=== PATIENT | female | born 1950 | race Caucasian/White ===

== ENCOUNTER 2019-07-08 15:01 | Emergency (ER) | payer OTHER ==
[~2019-07-08] VITALS: Ht 172.7 cm; Wt 79.4 kg
[~2019-07-08 15:01] MED LIST: METO50TA7 PO
[2019-07-08 15:30] VITALS: BP_SYST 136
--- NOTE | 2019-07-08 16:00 | NUR ---
Patient to ER bed 3 to gown for evaluation. Side rails up.
--- NOTE | 2019-07-08 16:20 | NUR ---
ER at bedside examining patient.
[2019-07-08] MEDS ORDERED: NACL 0.9% 1,000 ML IV ONE (16:30)
[2019-07-08] MEDS ORDERED: cefTRIAXone 1 GM in D5W 50 ML IV ONE (16:30)
[2019-07-08 17:20] LABS: BASOPHILS # (AUTO) 0.1 K/uL (0.0-0.2); BASOPHILS % (AUTO) 0.8 % (0.0-2.0); EOSINOPHILS # (AUTO) 0.1 K/uL (0.0-0.4); EOSINOPHILS % (AUTO) 1.2 % (0.0-4.0); HEMATOCRIT 42.9 % (36-48); HEMOGLOBIN 14.5 g/dL (12.0-16.0); LYMPHOCYTES # (AUTO) 1.4 K/uL (1.0-5.5); LYMPHOCYTES % (AUTO) 16.3 % (20.5-51.5); MEAN CORPUSCULAR HEMOGLOBIN 29 pg (27-31); MEAN CORPUSCULAR HGB CONC 34 % (32-36); MEAN CORPUSCULAR VOLUME 85 fL (79.0-98.0); MONOCYTES # (AUTO) 0.8 K/uL (0.0-1.0); NEUTROPHILS # (AUTO) 6.3 K/uL (1.8-7.7); NEUTROPHILS % (AUTO) 72.7 % (40.0-70.0); PLATELET COUNT (AUTO) 236 K/uL (130-430); RED BLOOD CELL COUNT(AUTO) 5.06 MIL/uL (4.2-6.2); RED CELL DISTRIBUTION WIDTH 14.7 % (9.0-15.0); WHITE BLOOD COUNT (AUTO) 8.7 K/uL (4.8-10.8)
--- NOTE | 2019-07-08 17:20 | NUR ---
# 22 gauge angiocath placed to left hand. Use of asceptic technique. Opsite placed over site. Blood return noted. Blood for lab drawn from site. Flushed with 10 cc of normal saline. No evidence of infiltration noted. Patient tolerated well.
[2019-07-08 17:27] LABS: CREATININE 0.84 mg/dL (0.55-1.30); POTASSIUM 4.5 mmol/L (3.5-5.1)
[2019-07-08 17:28] LABS: PROTHROMBIN TIME 9.7 SECS (9.5-12.5)
--- NOTE | 2019-07-08 17:30 | NUR ---
pt is currently running NS 1L and Rocephin per MD order.
[2019-07-08] MEDS: KETOROLAC TROMETHAMINE 30 MG VIAL IVP ONE ×2 (17:44→17:45)
[2019-07-08 17:46] LABS: ALBUMIN 3.3 g/dL (3.4-4.8); TOTAL BILIRUBIN 0.6 mg/dL (0.0-1.0)
[2019-07-08 18:27] LABS: BILIRUBIN,URINE NEGATIVE (NEGATIVE); BLOOD, URINE NEGATIVE (NEGATIVE); CLARITY/URINE CLEAR (CLEAR); COLOR,URINE YELLOW (YELLOW); GLUCOSE,URINE NEGATIVE (NEGATIVE); KETONES,URINE 1+ (NEGATIVE); LEUKOCYTE ESTERASE ,URINE 2+ (NEGATIVE); NITRITE, URINE NEGATIVE (NEGATIVE); PH,URINE 5.5 (5.0-8.0); PROTEIN URINE NEGATIVE (NEGATIVE); UROBILINOGEN,URINE 0.2 (0.2-1.0)
[2019-07-08 18:39] LABS: BACTERIA,URINE FEW /HPF (None Seen); MUCUS,URINE None Seen /LPF (None Seen); RBC,URINE NONE SEEN /HPF (0-3)
[2019-07-08 19:20] VITALS: BP_SYST 136
--- NOTE | 2019-07-08 19:20 | NUR ---
Care endorsed to Jasbir DOVE. Pt is in stable condition
--- NOTE | 2019-07-08 19:22 | NUR ---
Patient given written and verbal discharge instructions and verbalizes understanding. ER MD discussed with patient the results and treatment provided. Patient in stable condition. ID arm band removed. IV catheter removed intact and dressing applied, no active bleeding. Pain Scale 0/10. Opportunity for questions provided and answered. Medication side effect fact sheet provided.
== END 2019-07-08 19:20 | disposition home or self-care (01) ==
LOC: SED 15:01
DX: L03.116 Cellulitis of left lower limb (principal)
CPT/HCPCS: 36415; 80053; 81000; 83605; 85025; 85610; 85730; 87040; 87086; 93005; 93971; 96365; 99284; J0696; J1885; J7030; J7060

== ENCOUNTER 2019-07-09 21:55 | Emergency (ER) | payer OTHER ==
[~2019-07-09] VITALS: Ht 172.7 cm; Wt 79.4 kg
[2019-07-09 22:43] VITALS: BP_SYST 125
--- NOTE | 2019-07-10 01:02 | NUR ---
Pt ambulatory to bed 3 for evaluation
--- NOTE | 2019-07-10 01:30 | NUR ---
Pt came to the ED for gradually worsening L lower leg swelling that developed after injurying leg on 07/08/19. Pt was seen in the ED, ultrasound did not show any DVT. Reports that pt was given a presciption for keflex for cellulitis and has been taking MOtrin for pain. Reports that swelling and redness is worsening today. Denies n/v/d or fever. No other complaints/injuries noted. Will cont. to monitor.
--- NOTE | 2019-07-10 01:35 | NUR ---
ER at bedside examining patient.
--- NOTE | 2019-07-10 02:02 | NUR ---
xray at bedside
[2019-07-10] MEDS: LEVOFLOXACIN 500 MG TABLET PO ONE (02:07)
[2019-07-10 03:53] VITALS: BP_SYST 125
--- NOTE | 2019-07-10 03:53 | NUR ---
Patient given written and verbal discharge instructions and verbalizes understanding. ER MD discussed with patient the results and treatment provided. Patient in stable condition. ID arm band removed. Rx of Levaquin given. Patient educated on pain management and to follow up with PMD. Pain Scale 0. Opportunity for questions provided and answered. Medication side effect fact sheet provided.
== END 2019-07-10 03:53 | disposition home or self-care (01) ==
LOC: SED 21:55
DX: L03.116 Cellulitis of left lower limb (principal); Z79.899 Other long term (current) drug therapy
CPT/HCPCS: 73590-TC; 99283

== ENCOUNTER 2019-07-12 12:15 | Inpatient (IN) | payer OTHER ==
[~2019-07-12] VITALS: Ht 172.7 cm; Wt 87.1 kg
[2019-07-12 12:20] VITALS: BP_SYST 108
[2019-07-12 13:29] LABS: BASOPHILS # (AUTO) 0.1 K/uL (0.0-0.2); BASOPHILS % (AUTO) 1.2 % (0.0-2.0); EOSINOPHILS # (AUTO) 0.2 K/uL (0.0-0.4); HEMATOCRIT 41.9 % (36-48); HEMOGLOBIN 14.5 g/dL (12.0-16.0); LYMPHOCYTES # (AUTO) 1.6 K/uL (1.0-5.5); LYMPHOCYTES % (AUTO) 19.2 % (20.5-51.5); MEAN CORPUSCULAR HEMOGLOBIN 30 pg (27-31); MEAN CORPUSCULAR HGB CONC 35 % (32-36); MEAN CORPUSCULAR VOLUME 85 fL (79.0-98.0); MONOCYTES # (AUTO) 0.8 K/uL (0.0-1.0); MONOCYTES % (AUTO) 9.9 % (1.7-9.3); NEUTROPHILS # (AUTO) 5.5 K/uL (1.8-7.7); NEUTROPHILS % (AUTO) 67.7 % (40.0-70.0); PLATELET COUNT (AUTO) 284 K/uL (130-430); RED BLOOD CELL COUNT(AUTO) 4.92 MIL/uL (4.2-6.2); RED CELL DISTRIBUTION WIDTH 14.5 % (9.0-15.0); WHITE BLOOD COUNT (AUTO) 8.2 K/uL (4.8-10.8)
[2019-07-12 13:39] LABS: CALCIUM 9.2 mg/dL (8.4-11.0); CREATININE 0.94 mg/dL (0.55-1.30); POTASSIUM 3.9 mmol/L (3.5-5.1)
[2019-07-12 13:45] LABS: ALBUMIN 3.3 g/dL (3.4-4.8); TOTAL BILIRUBIN 0.4 mg/dL (0.0-1.0)
[2019-07-12] MEDS ORDERED: VANCOMYCIN HCL 1,000 MG in NS 250 ML IV ONE ×2 (14:00→15:15)
[2019-07-12] MEDS ORDERED: PIPERACILLIN/TAZO 3.375 GM in NS 50 ML IV ONE ×2 (14:00→15:15)
[2019-07-12] MEDS ORDERED: NACL 0.9% 1,000 ML IV ONE (14:00)
[2019-07-12 15:29] LABS: BILIRUBIN,URINE NEGATIVE (NEGATIVE); BLOOD, URINE NEGATIVE (NEGATIVE); CLARITY/URINE CLEAR (CLEAR); COLOR,URINE YELLOW (YELLOW); GLUCOSE,URINE NEGATIVE (NEGATIVE); KETONES,URINE 1+ (NEGATIVE); LEUKOCYTE ESTERASE ,URINE NEGATIVE (NEGATIVE); NITRITE, URINE NEGATIVE (NEGATIVE); PH,URINE 5.5 (5.0-8.0); PROTEIN URINE NEGATIVE (NEGATIVE); UROBILINOGEN,URINE 0.2 (0.2-1.0)
[2019-07-12] MEDS ORDERED: PIPERACILLIN/TAZOBACTAM 3.375 GM/VIAL (ZOSYN) IV ONE (15:38)
[2019-07-12 16:16] VITALS: BP_SYST 121
[2019-07-12 19:00] VITALS: BP_SYST 113
[2019-07-12 20:00] VITALS: BP_SYST 113
[2019-07-13] MEDS: TEMAZEPAM 15 MG CAPSULE PO PRN ×2 (00:13→21:48)
[2019-07-13 00:28] VITALS: BP_SYST 113
[2019-07-13 08:00] VITALS: BP_SYST 113
[2019-07-13] MEDS ORDERED: ONDANSETRON HCL 4 MG/2 ML VIAL IVP PRN (11:30)
[2019-07-13] MEDS ORDERED: ACETAMINOPHEN 325 MG TABLET PO PRN (11:30)
[2019-07-13] MEDS ORDERED: TEMAZEPAM 15 MG CAPSULE PO PRN (11:30)
[2019-07-13 13:15] VITALS: BP_SYST 114
[2019-07-13] MEDS: IBUPROFEN 400 MG TABLET PO SCH ×2 (14:29→21:48)
[2019-07-13] MEDS: CEFAZOLIN 1 GM IVPB PREMIX 50 ML IV SCH ×2 (14:31→21:48)
[2019-07-13 16:18] VITALS: BP_SYST 124
[2019-07-13 21:04] VITALS: BP_SYST 124
[2019-07-14 00:50] VITALS: BP_SYST 112
[2019-07-14 06:00] LABS: BASOPHILS # (AUTO) 0.1 K/uL (0.0-0.2); BASOPHILS % (AUTO) 1.1 % (0.0-2.0); EOSINOPHILS # (AUTO) 0.3 K/uL (0.0-0.4); EOSINOPHILS % (AUTO) 5.1 % (0.0-4.0); HEMATOCRIT 39.1 % (36-48); HEMOGLOBIN 13.2 g/dL (12.0-16.0); LYMPHOCYTES # (AUTO) 1.5 K/uL (1.0-5.5); LYMPHOCYTES % (AUTO) 20.9 % (20.5-51.5); MEAN CORPUSCULAR HEMOGLOBIN 28 pg (27-31); MEAN CORPUSCULAR HGB CONC 34 % (32-36); MEAN CORPUSCULAR VOLUME 84 fL (79.0-98.0); MONOCYTES # (AUTO) 0.7 K/uL (0.0-1.0); MONOCYTES % (AUTO) 9.4 % (1.7-9.3); NEUTROPHILS # (AUTO) 4.4 K/uL (1.8-7.7); NEUTROPHILS % (AUTO) 63.5 % (40.0-70.0); PLATELET COUNT (AUTO) 236 K/uL (130-430); RED BLOOD CELL COUNT(AUTO) 4.64 MIL/uL (4.2-6.2); RED CELL DISTRIBUTION WIDTH 14.2 % (9.0-15.0); WHITE BLOOD COUNT (AUTO) 6.9 K/uL (4.8-10.8)
[2019-07-14] MEDS: CEFAZOLIN 1 GM IVPB PREMIX 50 ML IV SCH ×3 (06:16→21:34)
[2019-07-14 07:23] LABS: ALBUMIN 2.7 g/dL (3.4-4.8); CALCIUM 8.7 mg/dL (8.4-11.0); CREATININE 0.81 mg/dL (0.55-1.30); POTASSIUM 4.1 mmol/L (3.5-5.1); TOTAL BILIRUBIN 0.3 mg/dL (0.0-1.0)
[2019-07-14 08:00] VITALS: BP_SYST 128
[2019-07-14] MEDS: IBUPROFEN 400 MG TABLET PO SCH (08:24)
[2019-07-14] MEDS: ENOXAPARIN SODIUM 40 MG/0.4 ML SYRINGE SUBCUT SCH (08:26)
[2019-07-14 12:41] VITALS: BP_SYST 124
[2019-07-14 17:15] VITALS: BP_SYST 120
[2019-07-14 20:37] VITALS: BP_SYST 134
[2019-07-14] MEDS: TEMAZEPAM 15 MG CAPSULE PO PRN (21:35)
[2019-07-15 00:35] VITALS: BP_SYST 134
[2019-07-15] MEDS: CEFAZOLIN 1 GM IVPB PREMIX 50 ML IV SCH (05:53)
[2019-07-15 07:30] VITALS: BP_SYST 131
[2019-07-15] MEDS: ENOXAPARIN SODIUM 40 MG/0.4 ML SYRINGE SUBCUT SCH (09:41)
[2019-07-15] MEDS ORDERED: AMOX-426 PO (11:31)
[2019-07-15 12:30] VITALS: BP_SYST 130
[2019-07-15 13:44] VITALS: BP_SYST 119
== END 2019-07-15 14:40 | disposition home or self-care (01) | DRG 603 ==
LOC: SED 12:15 → SMU 15:14
PROVIDERS: ADMIT Internal Medicine Hospice and Palliative Medicine; ATTEND Internal Medicine Hospice and Palliative Medicine
DX: L03.116 Cellulitis of left lower limb (principal); I82.890 Acute embolism and thrombosis of other specified veins; E44.1 Mild protein-calorie malnutrition; I82.409 Acute embolism and thrombosis of unspecified deep veins of unspecified lower extremity
CPT/HCPCS: 36415; 71045; 80053; 81003; 83605; 85025; 87040-TC; 87086; 93970; 96365; 96368; 99285; J0690; J1650; J2543; J3370; J7050